=== PATIENT | male | born 1995 | race Caucasian/White ===

== ENCOUNTER 2016-11-04 02:53 | Emergency (ER) | payer OTHER ==
[2016-11-04] MEDS ORDERED: cefTRIAXone VIAL(*) 250 MG VIAL IM ONE (05:01)
[2016-11-04] MEDS ORDERED: DOXYcycline CAP(*) 100 MG PO ONE (05:01)
[2016-11-04 05:27] VITALS: BP 124/73
--- NOTE | 2016-11-04 08:09 | RAD ---
INDICATION: Right testicular pain COMPARISON: None TECHNIQUE: Duplex interrogation of the scrotum was performed. FINDINGS: Testicles: The testicles are Normal in size and echogenicity. There is no evidence of testicular mass. There is symmetric flow on Doppler interrogation. There is no evidence of torsion.. The right testis measures 4.4 x 2.2 x 2.6 cm and the left 4.2 x 2.4 x 2.5 cm. There is symmetric flow on Doppler interrogation. Epididymides: There is no evidence of an epididymal mass. The epididymides are normal in size. There is symmetric flow on Doppler interrogation. The right epididymal head measures 1.1 x 1.1 cm and the left 0.8 x 1.2 cm. Hydroceles: None. Varicoceles: None. Other: None. IMPRESSION: NORMAL STUDY. NO EVIDENCE OF TESTICULAR MASS OR TORSION
--- NOTE | 2016-11-12 21:54 | ED ---
Emiliana Garcia Claudia, scribed for Abby Dewitt MD on 11/04/16 at 0323 . GI/ HPI - HPI Summary HPI Summary: 21 year old male presents to the ED with right testicular pain. Pt notes that it was sudden onset of dean at about 10pm lst night 11/03/16. He notes that he tried to go to sleep but was awoken by discomfort at 2am and then noticed that it was mildly erythematous and higher than usual. Pt denies any unprotected sex , or heavy lifting. He heard from some friends that it could be torsion and it made him concerned, bringing him into the ED. Pt denies any fever or chills associated with the Sx. He also doesn't admit to any alleviating or aggravating factors. - History of Current Complaint Chief Complaint: EDUrogenitalProblems Time Seen by Provider: 11/04/16 03:05 Stated Complaint: LOWER ABD PAIN Hx Obtained From: Patient Onset/Duration: Started Hours Ago, Still Present Pain Intensity: 4 Additional Locations for Males: Testicles - right Pain Characteristics: Aching Associated Signs and Symptoms: Negative: Discharge, New Sexual Partner - Allergy/Home Medications Allergies/Adverse Reactions: Allergies Allergy/AdvReac Type Severity Reaction Status Date / Time No Known Allergies Allergy Verified 11/04/16 03:00 PMH/Surg Hx/FS Hx/Imm Hx Previously Healthy: Yes Endocrine/Hematology History: Denies: Hx Diabetes Cardiovascular History: Denies: Hx Myocardial Infarction Infectious Disease History: No Infectious Disease History: Denies: Traveled Outside the [place] in Last 30 Days - Family History Known Family History: Positive: Diabetes - Social History Occupation: Student Alcohol Use: None Substance Use Type: Reports: None Smoking Status (MU): Never Smoked Tobacco Review of Systems Constitutional: Negative Negative: Fever, Chills Eyes: Negative ENT: Negative Cardiovascular: Negative Respiratory: Negative Gastrointestinal: Negative Positive: other - right testicular pain Musculoskeletal: Negative Skin: Negative Neurological: Negative Psychological: Normal All Other Systems Reviewed And Are Negative: Yes Physical Exam Triage Information Reviewed: Yes Vital Signs On Initial Exam: Initial Vitals Temp Pulse Resp BP Pulse Ox 97.1 F 93 14 123/87 100 11/04/16 02:56 11/04/16 02:56 11/04/16 02:56 11/04/16 02:56 11/04/16 02:56 Vital Signs Reviewed: Yes Appearance: Positive: Well-Appearing, No Pain Distress Skin: Positive: Warm, Skin Color Reflects Adequate Perfusion, Dry Eyes: Positive: EOMI, GREG Neck: Positive: Supple, Nontender Respiratory/Lung Sounds: Positive: Clear to Auscultation, Breath Sounds Present. Negative: Rales, Rhonchi, Wheezes Cardiovascular: Positive: RRR. Negative: Murmur, Leg Edema Left, Leg Edema Right Abdomen Description: Positive: Nontender, Soft. Negative: Distended, Guarding Male Genital Exam: Positive: testicular tenderness (R) - over the epididymis, high riding Musculoskeletal: Positive: Strength/ROM Intact Neurological: Positive: Sensory/Motor Intact, Alert, Oriented to Person Place, Time, CN Intact II-III Psychiatric: Positive: Affect/Mood Appropriate - [place] Coma Scale Coma Scale Total: 15 Diagnostics - Vital Signs Vital Signs Temp Pulse Resp BP Pulse Ox 11/04/16 02:56 97.1 F 93 14 123/87 100 - Laboratory Lab Statement: Any lab studies that have been ordered have been reviewed, and results considered in the medical decision making process. - Ultrasound No standard instances Ultrasound Interpretation: No Acute Changes - TESTICULAR US: NO SCROTAL ABNORMALITY IDENTIFIED. Ultrasound Interpretation Completed By: Radiologist GIGU Course/Dx - Course Course Of Treatment: pt treated for epididymitis - Diagnoses Provider Diagnoses: Epididymitis Discharge - Discharge Plan Condition: Stable Disposition: HOME Prescriptions: DOXYcycline CAP(*) [DOXYcycline 100MG CAP(*)] 100 mg PO BID #20 cap Patient Education Materials: Epididymitis (ED) Referrals: No Primary Care Phys,NOPCP [Primary Care Provider] - Additional Instructions: Follow up at the [facility] next week. The documentation as recorded by the Emiliana guaman Claudia accurately reflects the service I personally performed and the decisions made by me, Abby Dewitt MD.
== END 2016-11-04 05:26 | disposition home or self-care (01) ==
LOC: ED 02:53
DX: N50.811 Right testicular pain (principal); N45.1 Epididymitis
CPT/HCPCS: 76870; 96372; 99282; A9270-GY; J0696

== ENCOUNTER 2018-02-23 17:01 | Emergency (ER) | payer BC, OTHER ==
--- NOTE | 2018-02-23 19:16 | ED ---
Complex/Multi-Sys Presentation - HPI Summary HPI Summary: This is scribe Ninoskafiliberto Sevilla documenting for attending John Billingsley MD. 22 year old M presenting to [facility] complains of panic attack three hours ago that has since resolved. Symptoms aggravated by nothing. Symptoms alleviated by nothing. Patient reports emesis x2. Patient states he has felt anxious throughout the day. He reports shortness of breath, racing heart, feeling uncomfortable, all leading up to panic attack. Patient denies fever, chills, N/V /D, abdominal pain, chest pain, shortness of breath. Patient has hx anxiety but no hx panic attacks. - History Of Current Complaint Chief Complaint: EDGeneral Time Seen by Provider: 02/23/18 18:58 Hx Obtained From: Patient Onset/Duration: Sudden Onset, Resolved Aggravating Factor(s): Nothing Alleviating Factor(s): Nothing Associated Signs And Symptoms: Positive: Other - emesis x2; NEGATIVE: fever, chills, N/V/D, abdominal pain, chest pain, shortness of breath - Allergies/Home Medications Allergies/Adverse Reactions: Allergies Allergy/AdvReac Type Severity Reaction Status Date / Time No Known Allergies Allergy Verified 11/04/16 03:00 PMH/Surg Hx/FS Hx/Imm Hx Previously Healthy: No Endocrine/Hematology History: Denies: Hx Diabetes Cardiovascular History: Denies: Hx Myocardial Infarction Sensory History: Reports: Hx Contacts or Glasses Opthamlomology History: Reports: Hx Contacts or Glasses Psychiatric History: Reports: Hx Anxiety Denies: Hx Panic Disorder - Surgical History Surgery Procedure, Year, and Place: n/a Infectious Disease History: No Infectious Disease History: Denies: Traveled Outside the [place] in Last 30 Days - Family History Known Family History: Positive: Diabetes - Social History Alcohol Use: None Hx Substance Use: No Substance Use Type: Reports: None Hx Tobacco Use: No Smoking Status (MU): Never Smoked Tobacco Review of Systems Negative: Fever, Chills Negative: Chest Pain Negative: Shortness Of Breath Positive: Other - emesis x2. Negative: Abdominal Pain, Vomiting, Diarrhea, Nausea Positive: Other - panic attack since resolved All Other Systems Reviewed And Are Negative: Yes Physical Exam - Summary Physical Exam Summary: VITAL SIGNS: Reviewed. GENERAL: Patient is a well-developed and nourished male who is lying comfortable in the stretcher. Patient is not in any acute respiratory distress. HEAD AND FACE: No signs of trauma. No ecchymosis, hematomas or skull depressions. No sinus tenderness. EYES: PERRLA, EOMI x 2, No injected conjunctiva, no nystagmus. EARS: Hearing grossly intact. Ear canals and tympanic membranes are within normal limits. MOUTH: Oropharynx within normal limits. NECK: Supple, trachea is midline, no adenopathy, no JVD, no carotid bruit, no c- spine tenderness, neck with full ROM. CHEST: Symmetric, no tenderness at palpation LUNGS: Clear to auscultation bilaterally. No wheezing or crackles. CVS: Regular rate and rhythm, S1 and S2 present, no murmurs or gallops appreciated. ABDOMEN: Soft, non-tender. No signs of distention. No rebound no guarding, and no masses palpated. Bowel sounds are normal. EXTREMITIES: FROM in all major joints, no edema, no cyanosis or clubbing. NEURO: Alert and oriented x 3. No acute neurological deficits. Speech is normal and follows commands. SKIN: Dry and warm Triage Information Reviewed: Yes Vital Signs On Initial Exam: Initial Vitals Temp Pulse Resp BP Pulse Ox 98.2 F 106 16 121/86 96 02/23/18 17:09 02/23/18 17:09 02/23/18 17:09 02/23/18 17:09 02/23/18 17:09 Vital Signs Reviewed: Yes Diagnostics - Vital Signs Vital Signs Temp Pulse Resp BP Pulse Ox 02/23/18 17:09 98.2 F 106 16 121/86 96 - Laboratory Result Diagrams: 02/23/18 19:47 02/23/18 19:47 Lab Statement: Any lab studies that have been ordered have been reviewed, and results considered in the medical decision making process. - Radiology CXR Radiology Interpretation Completed By: Radiologist - NORMAL CHEST. ED physician has reviewed this report. - EKG 1956 Cardiac Rate: NL - 77 BPM EKG Rhythm: Sinus Rhythm EKG Interpretation: No ST elevations. Tall T waves in V2, V3, and V4 Complex Multi-Symp Course/Dx Assessment/Plan: 22-year-old male who presents to the emergency department with a chief complaint of having shortness of breath and anxiety. Patient states that he is having a panic attack. Chest x-ray shows no acute pathology. EKG shows a normal sinus rhythm without any ST elevations. Test results without any significant abnormality except for glucose of 101. In the ED course the patient was given Atarax and the symptoms have improved. At this point the patient is asymptomatic therefore he will be discharged home with follow-up with primary care physician. All results and findings were discussed with the patient and the need to follow up with primary care physician. All concerns were addressed, and is no further questions. Patient is hemodynamically stable alert and oriented 3 - Diagnoses Provider Diagnoses: Anxiety, Panic attack Discharge - Sign-Out/Discharge Documenting (check all that apply): Patient Departure - Discharge - Discharge Plan Condition: Stable Disposition: HOME Prescriptions: hydrOXYzine HCL TAB* [Atarax 25 MG TAB*] 25 mg PO TID PRN #30 tab PRN Reason: Anxiety Patient Education Materials: Anxiety (ED) Referrals: No Primary Care Phys,NOPCP [Primary Care Provider] - [facility] [Outside] - 3 Days Additional Instructions: You are advised to arrange a primary care provider for a follow-up appointment in 3 days. Return to the Emergency Department for new or worsening symptoms.
--- NOTE | 2018-02-23 19:53 | RAD ---
INDICATION: Short of breath COMPARISON: None TECHNIQUE: PA and lateral dual-energy views were obtained. FINDINGS: Bones/Soft Tissues: There are no acute bony findings. Cardiomediastinal: The cardiomediastinal silhouette is normal. Lungs: There are no infiltrates. Pleura: There are no pleural effusions. Other: None IMPRESSION: NORMAL CHEST.
[2018-02-23 19:58] LABS: ABS Basophils 0 10^3/ul (0-0.2); ABS Eosinophils 0 10^3/ul (0-0.6); ABS Lymphocytes 0.8 10^3/ul (1.0-4.8); ABS Monocytes 0.6 10^3/ul (0-0.8); ABS Nucleated RBC 0 10^3/ul; Eosinophil % 0.1 % (0-6); Hematocrit 49 % (42-52); Hemoglobin 17.5 g/dl (14.0-18.0); Lymphocyte % 8.4 % (25-47); Mean Corpuscular HGB Conc 36 g/dl (31-36); Mean Corpuscular Hemoglobin 32 pg (27-31); Mean Corpuscular Volume 89 fL (80-94); Mean Platelet Volume 10.1 um3 (7.4-10.4); Nucleated Red Blood Cells % 0; Platelet Count 213 10^3/ul (150-450); Red Blood Count 5.45 10^6/ul (4.00-5.40); Red Cell Distribution Width 13 % (10.5-15); White Blood Count 9.4 10^3/ul (3.5-10.8)
[2018-02-23] MEDS ORDERED: hydrOXYzine HCL TAB* 50 MG PO ONE (19:59)
[2018-02-23 20:14] LABS: EGFR Non-African American 98.9 (>60)
[2018-02-23 20:48] VITALS: BP 116/82
== END 2018-02-23 20:50 | disposition home or self-care (01) ==
LOC: ED 17:01
DX: F41.0 Panic disorder [episodic paroxysmal anxiety] (principal); F41.9 Anxiety disorder, unspecified
CPT/HCPCS: 36415; 71046; 80053; 85025; 86140; 93005; 99282; A9270-GY